=== PATIENT | male | born 1980 | race African-American/Black ===

== ENCOUNTER 2024-02-09 17:27 | Emergency (ER) | payer MEDICAID ==
[~2024-02-09] VITALS: Ht 180.3 cm; Wt 91.0 kg
[2024-02-09 17:47] VITALS: O2SAT 100
[2024-02-09] MEDS ORDERED: AMOX1TAB16 MT (18:15)
[2024-02-09 18:56] VITALS: TEMP 98.5
[2024-02-09 19:00] VITALS: BP 137/98; PULSE 68; RESP 14
[2024-02-09] MEDS: KETOROLAC 60MG/2ML VIAL IM ONE (19:00)
== END 2024-02-09 19:06 | disposition home or self-care (01) ==
LOC: ER 17:27
DX: K61.0 Anal abscess (principal); Z98.890 Other specified postprocedural states
CPT/HCPCS: 99283; 96372; J1885; 99285